=== PATIENT | male | born 1945 ===

== ENCOUNTER → 2023-02-22 11:34 | Outpatient (CLI) | payer MEDICARE, SELFPAY | LOC: RESP 11:35 | PROVIDERS: Family Provider Student in an Organized Health Care Education/Training Program; PCP Student in an Organized Health Care Education/Training Program; Referring Provider Student in an Organized Health Care Education/Training Program; Visit Provider Student in an Organized Health Care Education/Training Program | DX: R06.09 Other forms of dyspnea (principal); J44.89 Other specified chronic obstructive pulmonary disease; Z87.891 Personal history of nicotine dependence | CPT/HCPCS: 94060; 94726; 94729 ==